=== PATIENT | male | born 1965 | race Caucasian/White ===

== ENCOUNTER 2016-03-21 12:59 | Emergency (ER) | payer MEDICAID ==
[~2016-03-21] VITALS: Ht 157.5 cm; Wt 80.0 kg
[2016-03-21 13:02] VITALS: Ht 157.5 cm; Wt 80.0 kg
[2016-03-21] MEDS ORDERED: KETOROLAC 30 MG INJ IV STA (13:57)
[2016-03-21] MEDS ORDERED: SOD CHLORIDE 0.9% 1,000 ML IV STA (13:57)
[2016-03-21] MEDS ORDERED: ONDANSETRON 4 MG INJ IV STA (13:57)
[2016-03-21 14:49] LABS: BASOPHIL # 0.1 10^3/ul (0.0-0.1); BASOPHILS % 0.4 % (0.0-2.0); EOSINOPHILS # 0.1 10^3/ul (0.0-0.5); EOSINOPHILS % 0.9 % (0.0-7.0); HEMATOCRIT 47.3 % (42.0-52.0); HEMOGLOBIN 15.9 g/dl (14.0-18.0); LYMPHOCYTES # 1.9 10^3/ul (0.8-2.9); LYMPHOCYTES % 14.5 % (15.0-51.0); MEAN CORPUSCULAR HEMOGLOBIN 29.8 pg (29.0-33.0); MEAN CORPUSCULAR HGB CONC 33.6 g/dl (32.0-37.0); MEAN CORPUSCULAR VOLUME 88.9 fl (82.0-101.0); MEAN PLATELET VOLUME 9.3 fl (7.4-10.4); MONOCYTE # 0.6 10^3/ul (0.3-0.9); MONOCYTES % 4.8 % (0.0-11.0); NEUTROPHIL # 10.4 10^3/ul (1.6-7.5); NEUTROPHILS % 79.4 % (39.0-77.0); PLATELET COUNT 187 10^3/UL (140-440); RED BLOOD COUNT 5.32 10^6/ul (4.70-6.10); RED CELL DISTRIBUTION WIDTH 13.3 % (11.5-14.5); UNCORRECTED WBC 13.2 10^3/ul (4.8-10.8); WHITE BLOOD COUNT 13.2 10^3/ul (4.8-10.8)
[2016-03-21 14:50] LABS: CONDITION 1
--- NOTE | 2016-03-21 14:50 | RADRPT ---
PROCEDURE: CT Abdomen and Pelvis without contrast. CLINICAL INDICATION: Abdominal and pelvic pain. Vomiting. TECHNIQUE: CT scan of the abdomen and pelvis without contrast was performed. Coronal and sagittal reformatted images were obtained from the axial source images. Images were reviewed on a [employer] [place] PACS workstation. Total exam DLP is 1062.86 mGy-cm. CTDIvol is 16.69 mGy. One or more of the following dose reduction techniques were used: Automated exposure control, adjustment of the mA and/ or kV according to patient size, use of iterative reconstruction technique. COMPARISON: None. FINDINGS: The lung bases are normal. There are small calcified subcarinal and right hilar lymph nodes from pr evious granulomatous disease.. There is no pleural effusion. The liver is normal in size and attenuation. There is no focal hepatic lesion. The gallbladder and bile ducts are normal. The spleen is normal in size. There is no focal splenic lesion. Both adrenals are normal with no enlargement or mass. The pancreas is unremarkable with no mass or evidence of pancreatitis. There is no renal mass or calculus. There is moderate right hydroureteronephrosis due to an obstruc ting 0.2 cm calculus at the right ureterovesicle junction. There is no left hydronephrosis. The pe rirenal regions are normal with no fluid collection or mass. The abdominal aorta is not dilated. There is no retroperitoneal lymphadenopathy or mass. There is no pelvic lymphadenopathy or mass. The bladder and distal ureters are normal. The appendix is well seen and appears normal. There is diverticulosis of the sigmoid colon without evidence of diverticulitis. The bowel and mese ntery are otherwise normal. There is no free fluid or free gas. There are mild degenerative changes of the spine. There is no fracture or lytic lesion. IMPRESSION: 1. Previous granulomatous disease with calcified small lymph nodes in the subcarinal region and rig ht hilum. 2. Moderate right hydroureteronephrosis due to an obstructing 0.2 cm calculus at the right ureterov esicle junction. 3. Normal appendix. 4. Diverticulosis of the sigmoid colon without evidence of diverticulitis. 5. Mild degenerative changes of the spine. RPTAT: QQ .Bertin Dueñas MD, Date Time Electronically viewed and signed by .Bertin Dueñas MD, on 03/21/2016 14:50 .R/
[2016-03-21 14:51] LABS: ALBUMIN 4.3 g/dl (3.3-4.9)
[2016-03-21 14:52] LABS: POTASSIUM 4.2 mmol/L (3.5-5.1)
[2016-03-21 14:54] LABS: ALBUMIN/GLOBULIN RATIO 1.16; BILIRUBIN,INDIRECT 1.1 mg/dl (0-1.1); BILIRUBIN,TOTAL 1.1 mg/dl (0.2-1.3); CREATININE 0.99 mg/dl (0.61-1.24)
[2016-03-21 14:55] LABS: CALCIUM 9.5 mg/dl (8.4-10.2)
[2016-03-21 15:10] LABS: ADD UMIC YES; URINE BILIRUBIN (Dip) NEGATIVE (NEGATIVE); URINE BLOOD (Dip) 3+ (NEGATIVE); URINE COLOR LT. YELLOW (YELLOW); URINE GLUCOSE (Dip) NEGATIVE (NEGATIVE); URINE KETONES (Dip) NEGATIVE (NEGATIVE); URINE LEUKOCYTE ESTERASE (Dip) NEGATIVE (NEGATIVE); URINE NITRITE (Dip) NEGATIVE (NEGATIVE); URINE TOTAL PROTEIN (Dip) NEGATIVE (NEGATIVE); URINE UROBILINOGEN (Dip) 0.2 E.U./dL (0.1-1.0)
--- NOTE | 2016-03-21 15:17 | ERD ---
ER Documentation Chief Complaint Date/Time DATE: 03/21/16 TIME: 15:15 Chief Complaint RIGHT FLANK PAIN HPI Patient is a 51-year-old male who comes in reporting acute onset right flank and right lower abdominal pain that began today around 11 AM. He states nothing makes it better or worse. He says he had a similar episode about 20-25 years ago for which she cannot remember what caused it. He denies any dysuria, hematuria, nausea, vomiting, diarrhea, or fever. He denies any abdominal or flank trauma. Denies any sick contacts. In the remainder of the systems are negative. ROS All systems reviewed and are negative except as per history of present illness. Medications Home Meds Active Scripts Tamsulosin Hcl* (Flomax*) 0.4 Mg Cap.er.24h, 0.4 MG PO BID for 10 Days, #20 CAP 0 Refills Prov:ISIDRO HAWKINS 03/21/16 Ondansetron Hcl* (Zofran*) 4 Mg Tablet, 4 MG PO Q8H Y for NAUSEA AND/OR VOMITING , #30 TAB Prov:ISIDRO HAWKINS 03/21/16 Hydrocodone/Acetaminophen (Hobgood 5-325 Tablet) 1 Each Tablet, 2 TAB PO Q6H Y for PAIN, #20 TAB Prov:ISIDRO HAWKINS 03/21/16 Allergies Allergies: Coded Allergies: No Known Allergy (Unverified , 03/21/16) PMhx/Soc Medical and Surgical Hx: pt denies Medical Hx, pt denies Surgical Hx Hx Alcohol Use: No Hx Substance Use: No Hx Tobacco Use: No Smoking Status: Unknown if ever smoked Physical Exam Vitals Vital Signs Date Time Temp Pulse Resp B/P Pulse Ox O2 Delivery O2 Flow Rate FiO2 03/21/16 13:02 98.1 67 20 127/85 99 Physical Exam Const: [] Well-developed well-nourished male on the bed appearing uncomfortable Head: Atraumatic normocephalic Eyes: Normal Conjunctiva ENT: Normal External Ears, Nose and Mouth. Neck: Full range of motion..~ No meningismus. Resp: Clear to auscultation bilaterally Cardio: Regular rate and rhythm, no murmurs Abd: Soft, mild tenderness in the right lower quadrant no rebound, non distended. Normal bowel sounds Skin: No petechiae or rashes Back: moderate right flank tenderness Ext: No cyanosis, or edema Neur: Awake and alert oriented 3 with a GCS of 15 moves all extremities equally Psych: Normal Mood and Affect Result Diagram: 03/21/16 1425 03/21/16 1425 Results 24 hrs Laboratory Tests Test 03/21/16 14:25 03/21/16 14:50 Alanine Aminotransferase (ALT/SGPT) 58IU/L Albumin 4.3g/dl Albumin/Globulin Ratio 1.16 Alkaline Phosphatase 116IU/L Anion Gap 17 Aspartate Amino Transf (AST/SGOT) 38IU/L Basophils # 0.110^3/ul Basophils % 0.4% Blood Urea Nitrogen 15mg/dl Calcium Level 9.5mg/dl Carbon Dioxide Level 28mmol/L Chloride Level 102mmol/L Creatinine 0.99mg/dl Direct Bilirubin 0.00mg/dl Eosinophils # 0.110^3/ul Eosinophils % 0.9% Globulin 3.70g/dl Glucose Level 117mg/dl Hematocrit 47.3% Hemoglobin 15.9g/dl Indirect Bilirubin 1.1mg/dl Lipase 82U/L Lymphocytes # 1.910^3/ul Lymphocytes % 14.5% Mean Corpuscular Hemoglobin 29.8pg Mean Corpuscular Hemoglobin Concent 33.6g/dl Mean Corpuscular Volume 88.9fl Mean Platelet Volume 9.3fl Monocytes # 0.610^3/ul Monocytes % 4.8% Neutrophils # 10.410^3/ul Neutrophils % 79.4% Nucleated Red Blood Cells # 0.010^3/ul Nucleated Red Blood Cells % 0.0/100WBC Platelet Count 48092^3/UL Potassium Level 4.2mmol/L Red Blood Count 5.3210^6/ul Red Cell Distribution Width 13.3% Sodium Level 143mmol/L Total Bilirubin 1.1mg/dl Total Protein 8.0g/dl White Blood Count 13.210^3/ul Urine Bilirubin NEGATIVE Urine Clarity CLEAR Urine Color LT. YELLOW Urine Glucose NEGATIVE% Urine Hemoglobin 3+ Urine Ketones NEGATIVE Urine Leukocyte Esterase NEGATIVE Urine Microscopic RBC 5-10/HPF Urine Microscopic WBC 0-2/HPF Urine Nitrite NEGATIVE Urine Specific [place] 1.025 Urine Total Protein NEGATIVE Urine Urobilinogen 0.2 E.U./dL Urine pH 6.0 Current Medications Medications (Trade) Dose Ordered Sig/Sommer Route PRN Reason Start Time Stop Time Status Last Admin Dose Admin Sodium Chloride (NS) 1,000 ml @ 1,000 mls/hr Q1H STAT IV 03/21/16 13:57 03/21/16 14:56 DC 03/21/16 14:34 Ondansetron HCl (Zofran Inj) 4 mg ONCE STAT IV 03/21/16 13:57 03/21/16 13:59 DC 03/21/16 14:35 Ketorolac Tromethamine (Toradol) 30 mg ONCE STAT IV 03/21/16 13:57 03/21/16 13:59 DC 03/21/16 14:34 Procedures/MDM Differential includes acute renal colic, ureteral stone, pyelonephritis, appendicitis Departure Diagnosis: Primary Impression: Kidney calculus Condition: Stable Additional Instructions: Drink plenty of fluids. Take medications as prescribed. Follow-up with urologist as referred. Return to the emergency department for any new or worsening symptoms. ISIDRO HAWKINS Mar 21, 2016 15:17
[2016-03-21] MEDS ORDERED: ONDA4TAB8 PO (15:18)
[2016-03-21] MEDS ORDERED: HYDR-906 PO (15:18)
[2016-03-21] MEDS ORDERED: TAMS-14 PO (15:19)
[2016-03-21 16:59] VITALS: BP 127/82; RESP 20; TEMP 98.1
== END 2016-03-21 16:23 | disposition home or self-care (01) ==
LOC: E/R 12:59
DX: N20.0 Calculus of kidney (principal); R40.2252 Coma scale, best verbal response, oriented, at arrival to emergency department; R40.2362 Coma scale, best motor response, obeys commands, at arrival to emergency department; R40.2142 Coma scale, eyes open, spontaneous, at arrival to emergency department
CPT/HCPCS: 74176; 80053; 81001; 83690; 85025; 96374; 96375; J1885; J2405; J7030; Z7502; 81003